=== PATIENT | female | born 1970 | race Two or more races ===

== ENCOUNTER 2016-09-07 11:26 | Inpatient (IN) | payer BC, MEDICAID, OTHER ==
[2016-09-07] VITALS (16 sets, daily range): BP systolic 108–156; BP diastolic 62–85; PULSE 90–109; RESP 14–20; TEMP 97.3–98.3; O2SAT 99–100
[~2016-09-07] VITALS: Ht 154.9 cm; Wt 56.8 kg
[~2016-09-07 11:26] MED LIST: REME15TA OR
[2016-09-07] MEDS ORDERED: SODIUM CHLOR 0.9% 1000 ML INJ 1,000 ML IV ONE ×2 (11:52→13:15)
[2016-09-07] MEDS ORDERED: ONDANSETRON HCL 4 MG/2 ML VIAL IVP ONE (12:00)
[2016-09-07] MEDS ORDERED: SODIUM CHLORIDE 0.9% FLUSH 5 ML FLUSH IVF PRN ×2 (12:00→17:00)
[2016-09-07 12:13] LABS: BLOOD GAS BASE EXCESS -17.1 mmol/L (-2-2); BLOOD GAS CARBOXYHEMOGLOBIN 2.4 % (0-4); BLOOD GAS HCO3 9 mmol/L (22-26); BLOOD GAS METHEMOGLOBIN 2.1 % (0-2); BLOOD GAS O2 HGB SATURATION 93 % (90-100); BLOOD GAS OXYGEN CONTENT 20.2 Vol % (12.0-20.0); BLOOD GAS PCO2 24 mmHg (38-42); BLOOD GAS PO2 106 mmHG (61-120); BLOOD GAS TOTAL HGB 15.4 G/DL (12.0-16.0); CRITICAL VALUE YES; DRAW SITE RT RADIAL; FIO2 21 %; NUMBER OF ARTERIAL PUNCTURES 1; OXYGEN DEVICE ROOM AIR; STAT YES; TEMP CORR TO 98.6; ULNAR PULSE PRESENT
--- NOTE | 2016-09-07 12:21 | RADRPT ---
EXAM DATE/TIME: 09/07/2016 12:03 [facility] COMPARISON: No previous studies available for comparison. INDICATIONS : Syncope MEDICAL HISTORY : None. SURGICAL HISTORY : None. ENCOUNTER: Initial ACUITY: 1 day PAIN SCORE: Non-responsive. LOCATION: Bilateral chest FINDINGS: Portable AP view of the chest demonstrates a normal-sized cardiac silhouette. No effusion, consolidat ion, or pneumothorax is visualized. The bones and soft tissues demonstrate no acute abnormality. CONCLUSION: No acute cardiopulmonary abnormality is identified. Zaire La MD on September 07, 2016 at 12:19 Board Certified Radiologist. This report was verified electronically.
[2016-09-07] MEDS ORDERED: SODIUM BICARBONATE 8.4% INJ 50 MEQ/50 ML SYR IV PUSH ONE ×2 (12:30→13:30)
[2016-09-07 12:37] LABS: AUTOMATED NEUTROPHIL # 7.2 TH/MM3 (1.8-7.7); BASOPHIL # 0.1 TH/MM3 (0-0.2); BASOPHIL % 0.6 % (0.0-2.0); EOSINOPHIL # 0.3 TH/MM3 (0-0.4); EOSINOPHIL % 2.4 % (0.0-4.0); HEMATOCRIT 45.9 % (35.0-46.0); HEMO FLAGS DIFF FINAL; LYMPHOCYTE # 2.3 TH/MM3 (1.0-4.8); MEAN CELL VOLUME 94.7 FL (80.0-100.0); MEAN CORPUSCULAR HEMOGLOBIN 30.9 PG (27.0-34.0); MEAN CORPUSCULAR HGB CONC 32.6 % (32.0-36.0); MONO % 5.2 % (0.0-8.0); NEUT % 69.8 % (16.0-70.0); PLATELET COUNT 331 TH/MM3 (150-450); RED BLOOD COUNT 4.85 MIL/MM3 (4.00-5.30); RED CELL DISTRIBUTION WIDTH 13.7 % (11.6-17.2); WHITE BLOOD COUNT 10.3 TH/MM3 (4.0-11.0)
[2016-09-07 12:46] LABS: BLOOD, URINE NEG (NEG); CALCIUM OXALATE CRYSTALS,URINE FEW /hpf; GLUCOSE,URINE NEG (NEG); KETONE, URINE NEG (NEG); NITRITE,URINE NEG (NEG); SQUAMOUS EPITHELIAL CELL URINE <1 /hpf (0-5); URINE COLOR LIGHT-YELLOW (YELLW/STRAW)
[2016-09-07 12:47] LABS: COMMENT (UR) CULT NOT INDICATED; CULTURE IF INDICATED CULT NOT INDICATED
[2016-09-07 12:48] LABS: AMPHETAMINE, URINE NEG (NEG); BARBITURATES, URINE NEG (NEG); COCAINE, URINE NEG (NEG)
[2016-09-07 12:54] LABS: APTT (PATIENT) 29.6 SEC (24.3-30.1); INTERNATIONAL NORMALIZED RATIO 0.9 RATIO; PROTHROMBIN TIME - PATIENT 10.3 SEC (9.8-11.6)
[2016-09-07 13:03] LABS: ALKALINE PHOSPHATASE 126 U/L (45-117); ALT (GPT) 48 U/L (10-53); BETA HCG QUANT 3 MIU/ML (0-5); TOTAL BILIRUBIN ADULT 0.4 MG/DL (0.2-1.0)
[2016-09-07 13:07] LABS: ANION GAP 23 MEQ/L (5-15); AST (GOT) 34 U/L (15-37); BICARBONATE 12.8 MEQ/L (21.0-32.0); BLOOD UREA NITROGEN 15 MG/DL (7-18); CHLORIDE 109 MEQ/L (98-107); GLOMERULAR FILTRATION RATE 56 ML/MIN (>89); SODIUM (NA) 145 MEQ/L (136-145)
[2016-09-07 13:08] LABS: ACETAMINOPHEN LESS THAN 2.0 MCG/ML (10.0-30.0); POTASSIUM 4.9 MEQ/L (3.5-5.1)
[2016-09-07] MEDS ORDERED: DEXTROSE IV SCH ×4 (13:15→15:00)
[2016-09-07] MEDS ORDERED: [UNRECOGNIZED DRUG - OTHER] IV SCH ×2 (13:15)
[2016-09-07] MEDS ORDERED: WATE IV SCH ×2 (13:15)
[2016-09-07] MEDS ORDERED: ALCOHOL IV SCH ×4 (13:15→15:00)
--- NOTE | 2016-09-07 13:28 | PD ---
HPI Chief Complaint: OD/ Ingestion Time Seen by Provider: 11:38 Travel History International Travel<30 days: No Contact w/Intl Traveler<30days: No Traveled to known affect area: No History of Present Illness HPI 46-year-old female presents after she took an unknown amount of benzodiazepines , Benadryl, antifreeze last night trying to hurt her self. She denies any pain but can only open her eyes to voice and state her name. History is significantly limited. Patient presents under [facility]. [facility] Past Medical History Medical History: Unable to Obtain ?: Unknown Past Surgical History Narrative Surgical By records Gynecologic Surgery: Yes (BREAST IMPLANTS) Hysterectomy: Yes Social History Narrative Social History By records Alcohol Use: Yes (WINE DAILY) Tobacco Use: Yes Substance Use: No Allergies-Medications (Allergen,Severity, Reaction): Coded Allergies: Morphine (Verified Allergy, Unknown, 09/07/16) Reported Meds & Prescriptions Reported Meds & Active Scripts Active Active Prescriptions or Reported Medications Unobtainable Review of Systems ROS Limitations: Clinical Condition Physical Exam Exam Limitations: Clinical Condition Narrative GENERAL: Well-nourished, well-developed patient. SKIN: Warm and dry. HEAD: Normocephalic EYES: No injection or drainage. ENT: No nasal drainage noted. Dry mucous membranes NECK: Supple, trachea midline. CARDIOVASCULAR: Regular rate and rhythm RESPIRATORY: Breath sounds equal bilaterally at apices. No accessory muscle use. GASTROINTESTINAL: Abdomen soft, non-tender, nondistended. NEUROLOGICAL: Opens eyes to voice, states name states name,moves all extremities Data Data Last Documented VS Vital Signs Date Time Temp Pulse Resp B/P Pulse Ox O2 Delivery O2 Flow Rate FiO2 09/07/16 12:11 100 09/07/16 12:07 97.3 90 14 136/85 Orders Electrocardiogram (09/07/16 11:52) Alcohol (Ethanol) (09/07/16 11:52) Beta Hcg (Quant/Titer) (09/07/16 11:52) Complete Blood Count With Diff (09/07/16 11:52) Comprehensive Metabolic Panel (09/07/16 11:52) Drug Screen, Random Urine (09/07/16 11:52) Prothrombin Time / Inr (Pt) (09/07/16 11:52) Act Partial Throm Time (Ptt) (09/07/16 11:52) Salicylates (Aspirin) (09/07/16 11:52) Tylenol (Acetaminophen) (09/07/16 11:52) Osmolality,Serum (09/07/16 11:52) Osmolality, Urine (09/07/16 11:52) Urinalysis - C+S If Indicated (09/07/16 11:52) Chest, Single Ap (09/07/16 11:52) Arterial Blood Gas (Abg) (09/07/16 11:52) Blood Glucose (09/07/16 11:52) Iv Access Insert/Monitor (09/07/16 11:52) Cath For Specimen (09/07/16 11:52) Ecg Monitoring (09/07/16 11:52) Oximetry (09/07/16 11:52) Urinary Catheter Insert/Apply (09/07/16 11:52) Psych Screen (09/07/16 11:52) Ondansetron Inj (Zofran Inj) (09/07/16 12:00) Sodium Chloride 0.9% Flush (Ns Flush) (09/07/16 12:00) Sodium Chlor 0.9% 1000 Ml Inj (Ns 1000 M (09/07/16 11:52) Call Poison Control (09/07/16 11:52) Sodium Bicarbonate 8.4% Inj (Sodium Bica (09/07/16 12:30) Dextrose 5% In [place]... W/Alcohol, Dehydr (09/07/16 13:15) Sodium Chlor 0.9% 1000 Ml Inj (Ns 1000 M (09/07/16 13:15) Lactic Acid (09/07/16 13:14) Sodium Bicarbonate 8.4% Inj (Sodium Bica (09/07/16 13:30) Sodium Chlor 0.45%... W/Sodium Bicarbona (09/07/16 13:30) ^ Sitter (09/07/16 13:24) Dextrose 5% In [place]... W/Alcohol, Dehydr (09/07/16 15:00) Dextrose 5% In [place]... W/Alcohol, Dehydr (09/07/16 13:45) Admit Order (Ed Use Only) (09/07/16 13:37) Labs Laboratory Tests Test 09/07/16 09/07/16 09/07/16 11:50 12:00 12:01 Urine Color LIGHT-YELLOW Urine Turbidity CLEAR Urine pH 5.0 Urine Specific [place] 1.012 Urine Protein NEG mg/dL Urine Glucose (UA) NEG mg/dL Urine Ketones NEG mg/dL Urine Occult Blood NEG Urine Nitrite NEG Urine Bilirubin NEG Urine Urobilinogen LESS THAN 2.0 MG/DL Urine Leukocyte Esterase NEG Urine RBC LESS THAN 1 /hpf Urine WBC 1 /hpf Urine Squamous Epithelial <1 /hpf Cells Urine Calcium Oxalate Crystals FEW /hpf Microscopic Urinalysis Comment CULT NOT INDICATED Urine Osmolality 626 MOSM/KG Serum Osmolality 342 MOSM/KG Urine Opiates Screen NEG Urine Barbiturates Screen NEG Urine Amphetamines Screen NEG Urine Benzodiazepines Screen POS Urine Cocaine Screen NEG Urine Cannabinoids Screen NEG White Blood Count 10.3 TH/MM3 Red Blood Count 4.85 MIL/MM3 Hemoglobin 15.0 GM/DL Hematocrit 45.9 % Mean Corpuscular Volume 94.7 FL Mean Corpuscular Hemoglobin 30.9 PG Mean Corpuscular Hemoglobin 32.6 % Concent Red Cell Distribution Width 13.7 % Platelet Count 331 TH/MM3 Mean Platelet Volume 8.9 FL Neutrophils (%) (Auto) 69.8 % Lymphocytes (%) (Auto) 22.0 % Monocytes (%) (Auto) 5.2 % Eosinophils (%) (Auto) 2.4 % Basophils (%) (Auto) 0.6 % Neutrophils # (Auto) 7.2 TH/MM3 Lymphocytes # (Auto) 2.3 TH/MM3 Monocytes # (Auto) 0.5 TH/MM3 Eosinophils # (Auto) 0.3 TH/MM3 Basophils # (Auto) 0.1 TH/MM3 CBC Comment DIFF FINAL Differential Comment Prothrombin Time 10.3 SEC Prothromb Time International 0.9 RATIO Ratio Activated Partial 29.6 SEC Thromboplast Time Sodium Level 145 MEQ/L Potassium Level 4.9 MEQ/L Chloride Level 109 MEQ/L Carbon Dioxide Level 12.8 MEQ/L Anion Gap 23 MEQ/L Blood Urea Nitrogen 15 MG/DL Creatinine 1.05 MG/DL Estimat Glomerular Filtration 56 ML/MIN Rate Random Glucose 63 MG/DL Calcium Level 9.5 MG/DL Total Bilirubin 0.4 MG/DL Aspartate Amino Transf 34 U/L (AST/SGOT) Alanine Aminotransferase 48 U/L (ALT/SGPT) Alkaline Phosphatase 126 U/L Total Protein 8.8 GM/DL Albumin 4.3 GM/DL Human Chorionic Gonadotropin, 3 MIU/ML Quant Salicylates Level 2.7 MG/DL Acetaminophen Level LESS THAN 2.0 MCG/ML Ethyl Alcohol Level LESS THAN 3 MG/DL Blood Gas Puncture Site RT RADIAL Blood Gas Patient Temperature 98.6 Blood Gas HCO3 9 mmol/L Blood Gas Base Excess -17.1 mmol/L Blood Gas Oxygen Saturation 93 % Arterial Blood pH 7.22 Arterial Blood Partial 24 mmHg Pressure CO2 Arterial Blood Partial 106 mmHG Pressure O2 Arterial Blood Oxygen Content 20.2 Vol % Arterial Blood 2.4 % Carboxyhemoglobin Arterial Blood Methemoglobin 2.1 % Blood Gas Hemoglobin 15.4 G/DL Oxygen Delivery Device ROOM AIR Blood Gas Inspired Oxygen 21 % MDM Medical Decision Making Medical Screen Exam Complete: Yes Emergency Medical Condition: Yes Medical Record Reviewed: Yes (pmh confirmed) Interpretation(s) CBC & BMP Diagram 09/07/16 12:00 Last 24 hours Impressions Chest X-Ray 09/07/16 1152 Signed Impressions: Service Date/Time: Wednesday, September 07, 2016 12:03 - CONCLUSION: No acute cardiopulmonary abnormality is identified. Zaire La MD Osmolar gap is 43, high anion gap noted, alcohol negative EKG is sinus rhythm no STEMI criteria Differential Diagnosis Overdose, congestion, renal failure, electrolyte abnormality.... Narrative Course Will check blood work, chest x-ray and discussed at length with pharmacist and poison control in regards to medication dosing Given acidosis on ABG will dose with 3 A of bicarbonate and discuss with pharmacist starting fomeipazole. Pharmacist states we do not have this medication and lengthy discussion with both them and poison control about starting alcohol infusion BMP shows patient still acidotic so we'll place on bicarbonate drip in addition to IV alcohol, On recheck patient opens eyes to painful stimuli and states name but is more drowsy than on initial exam so will continue to closely monitor in ICU patient having dialysis catheter placed by dr clements, vitals stable, alcohol drip pending, will hold and perform dialysis Critical Care Narrative Aggregate critical care time was 60 minutes. Time to perform other separately billable procedures was not included in the critical care time. My time did not include minutes spent treating any other patients simultaneously or on activities that did not directly contribute to the patient's treatment. The services I provided to this patient were to treat and/or prevent clinically significant deterioration that could result in: Respiratory failure, renal failure, I provided critical care services requiring my management, as noted below: Chart data review, documentation time, medication orders and management, vital sign assessments/reviewing monitor data, ordering and reviewing lab tests, ordering and interpreting/reviewing x-rays and diagnostic studies, care of the patient and discussion of the patient with the admitting physicians. Physician Communication Physician Communication dr clements agrees to admit dr rivera agrees to emergent dialysis with conference call with myself and dr clements and dr clements will place dialysis catheter Diagnosis Primary Impression: Poisoning by antifreeze Qualified Code: T65.92XA - Poisoning by antifreeze, intentional self-harm, initial encounter Additional Impressions: High serum osmolar gap High anion gap metabolic acidosis Admitting Information Admitting Physician Requests: Admit Scripts Unable to Obtain Active Prescriptions or Reported Meds Cecy Medellin MD Sep 07, 2016 13:28
[2016-09-07] MEDS ORDERED: DEXTROSE IV ONE ×2 (13:45)
[2016-09-07] MEDS ORDERED: ALCOHOL IV ONE ×2 (13:45)
[2016-09-07] MEDS ORDERED: [UNRECOGNIZED DRUG - OTHER] IV ONE ×2 (13:45)
[2016-09-07] MEDS ORDERED: WATE IV ONE ×2 (13:45)
[2016-09-07] MEDS: SODIUM BICARBONATE 8.4% INJ 75 MEQ in SODIUM CHLOR 0.45% 1000 ML INJ 1,000 ML IV SCH ×2 (14:02→19:55)
[2016-09-07] MEDS ORDERED: [UNRECOGNIZED DRUG - OTHER] IV SCH ×2 (15:00)
[2016-09-07] MEDS ORDERED: WATER IV SCH ×2 (15:00)
[2016-09-07] MEDS ORDERED: SODIUM CHLORIDE 0.9% FLUSH 5 ML FLUSH IV FLUSH PRN (15:15)
[2016-09-07] MEDS ORDERED: MAGNESIUM SULFATE INJ 4 GM in SODIUM CHLORIDE 0.9% INJ 92 ML IV PRN (15:15)
[2016-09-07] MEDS ORDERED: POTASSIUM PHOSPHATE INJ 30 MMOL in SODIUM CHLOR 0.9% 250 ML INJ 250 ML IV PRN (15:15)
[2016-09-07] MEDS ORDERED: ONDANSETRON HCL 4 MG/2 ML VIAL IV PRN ×2 (15:15→17:00)
[2016-09-07] MEDS ORDERED: RESP: ALBUTEROL 2.5 MG/IPRATROPIUM 0.5 MG NEB (PRN) INH (15:15)
[2016-09-07] MEDS ORDERED: POTASSIUM CHLOR 40 MEQ PREMIX 100 ML IV PRN ×2 (15:15)
[2016-09-07] MEDS ORDERED: MAGNESIUM SULFATE INJ 2 GM in SODIUM CHLORIDE 0.9% INJ 96 ML IV PRN (15:15)
[2016-09-07] MEDS ORDERED: POTASSIUM CHLOR 20 MEQ PREMIX 100 ML IV PRN (15:15)
[2016-09-07] MEDS ORDERED: CHLORHEXIDINE GLUCONATE 2 % 1 PACK (2 CLOTHS) TOP PRN (15:15)
[2016-09-07] MEDS ORDERED: POTASSIUM PHOSPHATE MONOBASIC 500 MG TAB PO PRN (15:15)
[2016-09-07] MEDS ORDERED: MISCELLANEOUS NURSING INFORMATION XX SCH (15:15)
[2016-09-07] MEDS ORDERED: MAGNESIUM OXIDE 400 MG TAB PO PRN (15:15)
[2016-09-07] MEDS ORDERED: POTASSIUM PHOSPHATE MONOBASIC 500 MG TAB PO/TUBE PRN (15:15)
[2016-09-07] MEDS ORDERED: SODIUM PHOSPHATE INJ 30 MMOL in SODIUM CHLOR 0.9% 250 ML INJ 240 ML IV PRN (15:15)
[2016-09-07] MEDS ORDERED: POTASSIUM CL 40 MEQ/30 ML LIQ UDC PO/TUBE PRN ×2 (15:15)
--- NOTE | 2016-09-07 15:40 | RADRPT ---
EXAM DATE/TIME: 09/07/2016 15:18 [facility] COMPARISON: CHEST SINGLE AP, September 07, 2016, 12:03. INDICATIONS : Post central line placement MEDICAL HISTORY : None. SURGICAL HISTORY : None. ENCOUNTER: Subsequent ACUITY: 1 day PAIN SCORE: Non-responsive. LOCATION: chest FINDINGS: A single view of the chest demonstrates the lungs to be symmetrically aerated without evidence of mas s, infiltrate or effusion. There is a right internal jugular central line in place with the tip over lying the right atrium. No pneumothorax is seen. The cardiomediastinal contours are unremarkable. Os seous structures are intact. CONCLUSION: Right internal jugular central line in place with tip at the right atrium. Zaire Salinas MD on September 07, 2016 at 15:38 Board Certified Radiologist. This report was verified electronically.
--- NOTE | 2016-09-07 15:46 | HHI.HP ---
HPI Service Critical Care Medicine Primary Care Physician No Primary Care Physician Admission Diagnosis antifreeze overdose, acidosis Diagnosis: Chief Complaint: Altered mental status Travel History International Travel<30 Days: No Contact w/Intl Traveler <30 Da: No Traveled to Known Affected Are: No History of Present Illness This is a 46-year-old female with an under past medical history who presents to [facility] emergency Department with altered mental status. She is very somnolent but which she did tell the ER physician is that she drank a lot of antifreeze and took a lot of Valium. Per EMS report she also may have taken some unknown amount of Benadryl. She is protecting her airway, but it is significantly somnolent, difficult to arouse. The rest of her history is unobtainable. I evaluated the patient and agree with the ER physicians findings that she is not able to provide history with me, but she is still protecting her airway. Her laboratory data is pertinent for white blood cell count 10, hemoglobin 15, INR 0.9. Her ABG demonstrates a severe metabolic acidosis with an inappropriate respiratory compensation with a pH of 7.22, PCO2 24, PO2 of 106, base deficit of 17.1. Her UA demonstrates crystals. Her BMP is remarkable for a serum bicarbonate of 12.8, creatinine 1.05, serum osmolality of 342, anion gap of 23, osmole gap of 43. Her ethanol level was negative, Tylenol level levels negative, aspirin levels 2.7. Her UDS is positive for benzos. Critical care medicine has been consulted to evaluate and manage her ethylene glycol overdose. Our hospital does not carry Fomepizole and we cannot obtain it. The ER contacted poison control and they recommended in absence of fomepizole, ethanol infusion and sodium bicarbonate infusion. I have spoken with Dr. Cloud our on-call process supervisor. We both agree that her acidosis is great enough and uncompensated, and her airway is tenuous although still protected at this moment , that the safest option weighing risks/benefits is to proceed with emergent dialysis. Dr. Medellin, the ER physician, agrees with our assessment. Review of Systems ROS Limitations: Clinical Condition, Intoxication, Altered Mental Status Past Family Social History Allergies: Coded Allergies: Morphine (Verified Allergy, Unknown, 09/07/16) Past Medical History Unknown and unobtainable secondary to patient's clinical condition Past Surgical History Unknown and unobtainable secondary to patient's clinical condition Reported Medications Unknown unobtainable secondary to the patient's clinical condition Active Ordered Medications See MAR Family History Unknown and unobtainable secondary to patient's clinical condition. It is unlikely that is contributory to her acute illness. Social History Unknown and unobtainable secondary to patient's clinical condition. Physical Exam Vital Signs Vital Signs Date Time Temp Pulse Resp B/P Pulse Ox O2 Delivery O2 Flow Rate FiO2 09/07/16 15:30 97 14 138/82 100 Nasal Cannula 2 09/07/16 14:47 98 20 156/82 100 Nasal Cannula 2 09/07/16 12:11 100 09/07/16 12:07 97.3 90 14 136/85 100 Physical Exam GENERAL: Middle-aged female, lying in bed, somnolent but arousable to deep sternal rub, critically ill. HEENT: Pupils equal, round, conjugate, reactive. Mucous membranes are moist. NECK: Trachea is midline. There is no JVD. CHEST: Equal chest rise. Clear to auscultation. CARDIOVASCULAR: Normal rate, regular rhythm. No appreciable murmurs. ABDOMEN: Soft, nontender, nondistended. No guarding. There is a Webber with clear yellow urine. MUSCULOSKELETAL: Distal pulses 2+. No peripheral edema. NEUROLOGICAL: RASS -2/-3. Arousable to deep sternal rub. Positive cough. Positive gag. Follows commands weakly in all 4 extremity's. Laboratory Laboratory Tests Test 09/07/16 09/07/16 09/07/16 11:50 12:00 12:01 Urine Color LIGHT-YELLOW Urine Turbidity CLEAR Urine pH 5.0 Urine Specific [place] 1.012 Urine Protein NEG Urine Glucose (UA) NEG Urine Ketones NEG Urine Occult Blood NEG Urine Nitrite NEG Urine Bilirubin NEG Urine Urobilinogen LESS THAN 2.0 Urine Leukocyte Esterase NEG Urine RBC LESS THAN 1 Urine WBC 1 Urine Squamous Epithelial <1 Cells Urine Calcium Oxalate Crystals FEW Microscopic Urinalysis Comment CULT NOT INDICATED Urine Osmolality 626 Serum Osmolality 342 Urine Opiates Screen NEG Urine Barbiturates Screen NEG Urine Amphetamines Screen NEG Urine Benzodiazepines Screen POS Urine Cocaine Screen NEG Urine Cannabinoids Screen NEG White Blood Count 10.3 Red Blood Count 4.85 Hemoglobin 15.0 Hematocrit 45.9 Mean Corpuscular Volume 94.7 Mean Corpuscular Hemoglobin 30.9 Mean Corpuscular Hemoglobin 32.6 Concent Red Cell Distribution Width 13.7 Platelet Count 331 Mean Platelet Volume 8.9 Neutrophils (%) (Auto) 69.8 Lymphocytes (%) (Auto) 22.0 Monocytes (%) (Auto) 5.2 Eosinophils (%) (Auto) 2.4 Basophils (%) (Auto) 0.6 Neutrophils # (Auto) 7.2 Lymphocytes # (Auto) 2.3 Monocytes # (Auto) 0.5 Eosinophils # (Auto) 0.3 Basophils # (Auto) 0.1 CBC Comment DIFF FINAL Differential Comment Prothrombin Time 10.3 Prothromb Time International 0.9 Ratio Activated Partial 29.6 Thromboplast Time Sodium Level 145 Potassium Level 4.9 Chloride Level 109 Carbon Dioxide Level 12.8 Anion Gap 23 Blood Urea Nitrogen 15 Creatinine 1.05 Estimat Glomerular Filtration 56 Rate Random Glucose 63 Calcium Level 9.5 Total Bilirubin 0.4 Aspartate Amino Transf 34 (AST/SGOT) Alanine Aminotransferase 48 (ALT/SGPT) Alkaline Phosphatase 126 Total Protein 8.8 Albumin 4.3 Human Chorionic Gonadotropin, 3 Quant Salicylates Level 2.7 Acetaminophen Level LESS THAN 2.0 Ethyl Alcohol Level LESS THAN 3 Blood Gas Puncture Site RT RADIAL Blood Gas Patient Temperature 98.6 Blood Gas HCO3 9 Blood Gas Base Excess -17.1 Blood Gas Oxygen Saturation 93 Arterial Blood pH 7.22 Arterial Blood Partial 24 Pressure CO2 Arterial Blood Partial 106 Pressure O2 Arterial Blood Oxygen Content 20.2 Arterial Blood 2.4 Carboxyhemoglobin Arterial Blood Methemoglobin 2.1 Blood Gas Hemoglobin 15.4 Oxygen Delivery Device ROOM AIR Blood Gas Inspired Oxygen 21 Result Diagram: 09/07/16 1200 09/07/16 1200 Assessment and Plan Assessment and Plan Assessment: This is a 46-year-old female with a really unknown past medical history who presents with acute ethanol glycol toxicity and evidence of severe acidosis as well as altered mental status. She is very critically ill this time. We will pursue emergent hemodialysis. If her mental status continues to decline we will have to proceed with emergent intubation. Active problems: Ethylene glycol toxicity Benzodiazepine overdose Severe metabolic acidosis Toxic encephalopathy Plan: I will place a right IJ dialysis catheter Proceed with emergent dialysis For mental status declined we will proceed with intubation and mechanical ventilation Every hour neuro checks Every hour urine outputs We will continue the sodium bicarbonate infusion as directed by poison control center We will not start ethanol infusion, as we are proceeding with dialysis instead. Subcutaneous heparin, SCDs for DVT prophylaxis Does not meet criteria for GI prophylaxis at this time Nothing by mouth Serial BMP, CBC. Admit to the ICU. This patient remains critically ill with one or more organ systems which are or may become a threat to life. I have spent in excess of 57 minutes discontinuously in the care and management of this patient. This time is exclusive of procedures, and includes, but is not limited to, evaluation of the patient, review of the medical record, discussions with family, consultants, nursing staff, or respiratory therapy, and documentation in the medical record. Code Status Full Code Discussed Condition With Dr. Smith, Dr. Cloud, bedside RN Nando Huerta MD Sep 07, 2016 15:46
[2016-09-07] MEDS: INSULIN NovoLIN REGULAR SUPPLEMENTAL SCALE SQ SCH ×2 (16:00→20:00)
--- NOTE | 2016-09-07 16:09 | PD.PROCEDR ---
Procedure Note Procedure Central Line Procedure Note Right IJ 14 American, 20 cm dialysis catheter Diagnosis: Ethylene glycol toxicity Indications: Severe acidosis Consent: Consent is deemed emergent or medically necessary Anesthesia: 1% lidocaine locally Description of the Procedure: The patient was placed in the supine, mild- Trendelenburg position. The area was prepped and draped sterilely. A 19g needle was inserted under negative pressure aspiration and dark venous blood was obtained. A guidewire was inserted easily without resistance. A small incision was made using a #11 blade. Using a modified Seldinger technique, the serial dilators and 14 American, 20 cm catheter were advanced over the guidewire without resistance. All ports were aspirated and flushed, and had brisk blood return. The line was secured at the skin using 2-0 silk interrupted sutures. A Biopatch and Transparent sterile dressing were applied. There were no immediate complications noted. There was minimal EBL. The patient tolerated the procedure well. Ultrasound Guidance: Ultrasound guidance was used to identify the right internal jugular vein. The vascular anatomy of the right anterior neck was normal. The vessel was cannulated under direct, real-time ultrasound visualization. After placement of the guidewire, confirmation of the guidewire in the lumen of the vessel was made using ultrasound visualization, before dilation of the tract. A Chest x-ray has been ordered. I personally performed the procedure. Nando Huerta MD Sep 07, 2016 16:09
[2016-09-07] MEDS ORDERED: SODIUM CHLOR 0.9% 1000 ML INJ 1,000 ML IV PRN ×3 (16:49)
[2016-09-07 16:54] LABS: BLOOD GAS BASE EXCESS -8.2 mmol/L (-2-2); BLOOD GAS HCO3 16 mmol/L (22-26); BLOOD GAS METHEMOGLOBIN 2.2 % (0-2); BLOOD GAS O2 HGB SATURATION 95 % (90-100); BLOOD GAS OXYGEN CONTENT 17.8 Vol % (12.0-20.0); BLOOD GAS PCO2 26 mmHg (38-42); BLOOD GAS PO2 147 mmHG (61-120); BLOOD GAS TOTAL HGB 13.1 G/DL (12.0-16.0); CRITICAL VALUE YES; TEMP CORR TO 98.6
[2016-09-07 16:55] LABS: DRAW SITE RT RADIAL; LITER FLOW 2 L/M; NUMBER OF ARTERIAL PUNCTURES 1; OXYGEN DEVICE NASAL CANNULA; STAT YES; ULNAR PULSE PRESENT
[2016-09-07] MEDS ORDERED: HEPARIN SODIUM - IV 10,000 UNITS/10 ML VIAL IVF PRN (17:00)
[2016-09-07] MEDS ORDERED: NITROGLYCERIN 0.4 MG SL 25 TABS/BTL SL PRN (17:00)
[2016-09-07] MEDS ORDERED: cloNIDine HCL 0.1 MG TAB PO PRN (17:00)
[2016-09-07] MEDS ORDERED: ALBUMIN HUMAN 25% 25 GM/100 ML BAGP IV PRN (17:00)
[2016-09-07] MEDS ORDERED: MANNITOL 12.5 GM/50 ML VIAL IV PRN (17:00)
[2016-09-07] MEDS ORDERED: HEPARIN SODIUM - IV 10,000 UNITS/10 ML VIAL PRN (17:00)
[2016-09-07] MEDS ORDERED: GELATIN 12 MM/7 MM FOAM TOP PRN (17:00)
[2016-09-07] MEDS ORDERED: diphenhydrAMINE HCL 25 MG CAP PO PRN (17:00)
[2016-09-07] MEDS ORDERED: GENTAMICIN SULFATE (DIALYSIS USE ONLY) 20 MG/2 ML VIAL IV PRN (17:00)
[2016-09-07] MEDS: HEPARIN SODIUM - SQ 10,000 UNITS/ML VIAL SQ SCH (19:54)
[2016-09-07] MEDS ORDERED: SODIUM BICARBONATE 8.4% INJ 50 MEQ/50 ML SYR ONE (20:13)
[2016-09-07] MEDS: DEXTROSE 50% IN WATER 50 ML VIAL(D50) IV PUSH PRN (20:46)
[2016-09-07] MEDS: SODIUM CHLOR 0.9% 1000 ML INJ 1,000 ML IV SCH (20:47)
[2016-09-07] MEDS: SODIUM CHLORIDE 0.9% FLUSH 5 ML FLUSH IV FLUSH SCH (20:54)
[2016-09-07] MEDS: DOCUSATE SODIUM 50 MG/SENNA 8.6 MG TAB PO SCH (21:35)
[2016-09-08] VITALS (13 sets, daily range): BP systolic 95–116; BP diastolic 54–60; PULSE 84–101; RESP 20–29; TEMP 98–98.7; O2SAT 97–100
[2016-09-08] MEDS: HEPARIN SODIUM - SQ 10,000 UNITS/ML VIAL SQ SCH ×4 (00:11→22:42)
[2016-09-08] MEDS: DEXTROSE 50% IN WATER 50 ML VIAL(D50) IV PUSH PRN ×2 (00:11→04:17)
[2016-09-08] MEDS: SODIUM CHLOR 0.9% 1000 ML INJ 1,000 ML IV SCH ×2 (03:55→14:51)
[2016-09-08] MEDS: CHLORHEXIDINE GLUCONATE 2 % 1 PACK (2 CLOTHS) TOP SCH (04:00)
[2016-09-08] MEDS: INSULIN NovoLIN REGULAR SUPPLEMENTAL SCALE SQ SCH ×6 (04:00→20:00)
--- NOTE | 2016-09-08 06:29 | MB ---
cc: EMILIA MURILLO MD DATE OF CONSULTATION 09/07/2016 REASON FOR CONSULTATION Acute dialysis for ethylene glycol intoxication. HISTORY OF PRESENT ILLNESS This is a 46-year-old female with a history of depression. She had a previous admission in 2010 when she apparently was Tristan Acted for an overdose of Lamictal for a suicide attempt with alcohol overdose at that time as well. She was discharged at that time and had no other visits [facility]. She was apparently admitted today to the emergency room with somnolence and reportedly told the emergency room physician that she drank a lot antifreeze and took a lot of Valium and also there is some chance of Benadryl intake as well. The patient was admitted and seen in the emergency room. She was found to have acidosis with a serum bicarbonate level of 12. Urinalysis demonstrated crystals. Her creatinine was otherwise 1. Unfortunately ethylene glycol levels could not be obtained here in this hospital and the initial treatment for this would be fomepizole which again is not available here at [facility]. Poison Control was notified as well and they recommended initial bicarbonate treatment with also alcohol treatment. I have discussed this with the ICU team and they felt that given her significant acidosis dialysis may be of benefit. She does have significant acidosis with bicarbonate level of 12. Given these findings, emergent dialysis was initiate and the patient is undergoing dialysis at this time via newly placed right IJ non-tunneled catheter which was placed by the ICU team. At this point she is fairly somnolent; however, is protecting her airway and breathing otherwise. Her vital signs are otherwise stable and her oxygen saturation is 100% on 2 liters nasal cannula. She is tolerating dialysis at this time but is unable to give a full medical history otherwise. REVIEW OF SYSTEMS Unobtainable. The patient is somnolent, is arousable. However, is unable to answer questions. PAST MEDICAL HISTORY 1. History of depression. 2. Asthma. SOCIAL HISTORY Unknown. FAMILY HISTORY Unknown. ALLERGIES ALLERGY TO MORPHINE noted in the computer system. MEDICATIONS AT HOME Unknown. The patient did have apparent ethylene glycol and Valium overdose, possible Benadryl overdose as well. PHYSICAL EXAMINATION VITAL SIGNS: At the time of evaluation, temperature 97.3, pulse 102, respiratory rate 16, blood pressure 135/77, pulse ox 100% on 2 liters nasal cannula. GENERAL: Somnolent, in no apparent distress. HEENT/NECK: Soft, supple. CARDIAC: Regular rate and rhythm. PULMONARY: Lungs clear to auscultation bilaterally. ABDOMEN: Soft, nontender, nondistended. EXTREMITIES: No edema. SKIN: The patient has a right IJ non-tunneled catheter in place. LABORATORY FINDINGS White count 10.3, hemoglobin 15, hematocrit 45.9 with platelet count of 331. Sodium 145, potassium 4.9, chloride 109, bicarb 12.8, BUN 15, creatinine 1.05, glucose 63, AST 34, ALT 48, alk phos 126, albumin 4.3. Urinalysis with a few calcium oxalate crystals noted. Toxicology screen - Positive benzodiazepines, ethyl alcohol less than 3, acetaminophen less than 2, salicylate level 2.7. ASSESSMENT AND PLAN 1. Ethylene glycol toxicity. The patient has apparent overdose of antifreeze as well as Valium and possibly Benadryl. She presents with significant acidosis with a bicarbonate level of 12. Ideally fomepizole could be given for ethylene glycol toxicity; however, this is not available here at this hospital and ethylene glycol levels cannot be obtained here. At this point will go ahead and initiate dialysis given significant acidosis with history of ethylene glycol ingestion. We will do dialysis today with no ultrafiltration, repeat dialysis tomorrow for further clearance and continue to follow up acidosis. We should have good clearance of toxin substrates with two straight dialysis treatments. Continue to closely monitor and follow acidosis. 2. Metabolic acidosis. The patient with elevated anion gap acidosis secondary to ingestion of ethylene glycol. The patient is on bicarbonate with one half normal saline plus 75 mEq of sodium bicarbonate at 42 cc/hour. Continue with fluids at this point and continue with dialysis to further treat acidosis. Dialysis will be performed today and then repeated tomorrow. 3. Altered mental status. The patient had ingestion of Valium apparently as well as ethylene glycol. Continue to monitor for improvement in mental status and continue to monitor in ICU with airway protection as needed. The patient is breathing on her at this poin 4. History of depression. The patient had a previous overdose and suicide attempt in 2010 with Lamictal at that time. As the patient further stabilizes, consider further psychiatric evaluation 5. History of asthma. There was a previous history of asthma noted on previous records. Continue to monitor and follow respiratory status. MD SASHA Trujillo/SSB /5:01 PM /6:08 AM MTDAlyce
[2016-09-08] MEDS: ACETAMINOPHEN 325 MG TAB PO PRN ×2 (07:29→14:40)
[2016-09-08 07:55] LABS: HEMATOCRIT 38.5 % (35.0-46.0); MEAN CELL VOLUME 89.9 FL (80.0-100.0); MEAN CORPUSCULAR HEMOGLOBIN 30.4 PG (27.0-34.0); MEAN CORPUSCULAR HGB CONC 33.8 % (32.0-36.0); PLATELET COUNT 253 TH/MM3 (150-450); RED BLOOD COUNT 4.28 MIL/MM3 (4.00-5.30); RED CELL DISTRIBUTION WIDTH 12.8 % (11.6-17.2); REVIEW FLAG FINAL; WHITE BLOOD COUNT 12.3 TH/MM3 (4.0-11.0)
[2016-09-08 08:44] LABS: BICARBONATE 27.2 MEQ/L (21.0-32.0)
[2016-09-08] MEDS: DOCUSATE SODIUM 50 MG/SENNA 8.6 MG TAB PO SCH ×2 (08:59→20:20)
[2016-09-08] MEDS: SODIUM CHLORIDE 0.9% FLUSH 5 ML FLUSH IV FLUSH SCH ×2 (09:00→20:20)
[2016-09-08] MEDS ORDERED: SODIUM CHLOR 0.9% 250 ML INJ 250 ML IV ONE (09:45)
[2016-09-08] MEDS: POTASSIUM CHLOR 20 MEQ PREMIX 100 ML IV PRN ×4 (10:09→18:12)
--- NOTE | 2016-09-08 11:05 | HHI.NPPN ---
Subjective History of Present Illness 46 year old female with drug overdose and suspected Ethylene Glycol poisoning Review of Systems General Constitutional: Fatigue Objective Data Data 09/07/16 09/08/16 19:00 07:00 Intake Total 1383 ml Output Total 1400 ml 400 ml Balance -1400 ml 983 ml Intake Oral 240 ml IV Total 1143 ml Output Urine Total 1400 ml 400 ml # Bowel Movements 0 Vital Signs Date Time Temp Pulse Resp B/P Pulse Ox O2 Delivery O2 Flow Rate FiO2 09/08/16 10:00 85 09/08/16 08:29 21 09/08/16 08:00 100 Nasal Cannula 1.00 09/08/16 08:00 94 09/08/16 08:00 98.7 94 22 98/55 99 09/08/16 06:00 92 09/08/16 04:00 98.1 101 20 111/58 100 09/08/16 04:00 101 09/08/16 02:00 94 09/08/16 01:38 100 Nasal Cannula 2.00 09/08/16 00:00 100 09/08/16 00:00 98.4 100 20 103/60 100 09/07/16 22:00 100 09/07/16 21:55 100 Nasal Cannula 1.00 09/07/16 21:34 98.2 101 16 148/68 100 09/07/16 20:47 103 18 117/68 100 Nasal Cannula 09/07/16 20:17 98.3 09/07/16 20:03 107 18 113/70 100 Nasal Cannula 2 09/07/16 18:30 109 14 108/62 100 Nasal Cannula 2 09/07/16 17:30 104 16 109/71 99 Nasal Cannula 2 09/07/16 17:00 102 16 110/70 100 Nasal Cannula 2 09/07/16 16:56 100 Nasal Cannula 2.00 09/07/16 16:30 102 16 135/77 100 Nasal Cannula 2 09/07/16 16:00 95 16 142/78 99 Nasal Cannula 2 09/07/16 15:30 97 14 138/82 100 Nasal Cannula 2 09/07/16 14:47 98 20 156/82 100 Nasal Cannula 2 09/07/16 12:11 100 09/07/16 12:07 97.3 90 14 136/85 100 -: 09/08/16 0658 09/08/16 0658 Physical Exam General Appearance: Well Developed, Well Nourished Eyes Eye Exam: Pupils Equal Neck Neck Exam: Neck Supple Pulmonary Resp Exam: Clear Bilaterally, Breath Sounds Equal Cardiology CV Exam: Regular, Normal Sinus Rhythm, Good Perfusion Gastrointestinal/Abdomen GI Exam: Soft, Non-Tender, Bowel Sounds Present Integumentary Skin Exam: Clear Extremeties Extremities Exam: No Edema Neurologic Neuro Exam: Alert, Awake, Oriented Assessment/Plan Problem List: (1) Poisoning by antifreeze Plan: she is seen during 2nd dialysis session today UF 4 K UF minimal tolerating it well Acidosis resolved no further indication for dialysis suspected Ethylene Glycol poisoning resolved after dialysis Nephrology to sign off replace k Problem Qualifiers (1) Poisoning by antifreeze: Qualified Code: T65.92XA - Poisoning by antifreeze, intentional self-harm, initial encounter Fredis Roth MD Sep 08, 2016 11:05
[2016-09-08] MEDS ORDERED: POTASSIUM CHLORIDE 10 MEQ CONTROLLED RELEASE TAB PO ONE (11:15)
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
--- NOTE | 2016-09-08 19:01 | EKG ---
Date Performed: 09/07/2016 Time Performed: 20:07:10 PTAGE: 46 years EKG: SINUS TACHYCARDIA POSSIBLE INFERIOR MYOCARDIAL INFARCTION Inferior lateral ischemic changes are present. Clinical correlation is recommended ABNORMAL ECG NO PREVIOUS TRACING DOCTOR: Jailyn Carrasco Interpretating Date/Time 09/08/2016 19:00:39
--- NOTE | 2016-09-08 21:02 | HHI.CCPN ---
Subjective Remarks/Hospital Course Hospital Course: This is a 46-year-old female with an under past medical history who presents to [facility] emergency Department with altered mental status. She is very somnolent but which she did tell the ER physician is that she drank a lot of antifreeze and took a lot of Valium. Per EMS report she also may have taken some unknown amount of Benadryl. She is protecting her airway, but it is significantly somnolent, difficult to arouse. The rest of her history is unobtainable. I evaluated the patient and agree with the ER physicians findings that she is not able to provide history with me, but she is still protecting her airway. Her laboratory data is pertinent for white blood cell count 10, hemoglobin 15, INR 0.9. Her ABG demonstrates a severe metabolic acidosis with an inappropriate respiratory compensation with a pH of 7.22, PCO2 24, PO2 of 106, base deficit of 17.1. Her UA demonstrates crystals. Her BMP is remarkable for a serum bicarbonate of 12.8, creatinine 1.05, serum osmolality of 342, anion gap of 23, osmole gap of 43. Her ethanol level was negative, Tylenol level levels negative, aspirin levels 2.7. Her UDS is positive for benzos. Critical care medicine has been consulted to evaluate and manage her ethylene glycol overdose. Our hospital does not carry Fomepizole and we cannot obtain it. The ER contacted poison control and they recommended in absence of fomepizole, ethanol infusion and sodium bicarbonate infusion. I have spoken with Dr. Cloud our on-call parts counter clerk. We both agree that her acidosis is great enough and uncompensated, and her airway is tenuous although still protected at this moment , that the safest option weighing risks/benefits is to proceed with emergent dialysis. Dr. Medellin, the ER physician, agrees with our assessment. Subjective: 09/08: much improved. awake, alert. says she wanted to kill herself because she didn't deserve to live. actively getting 2nd IHD on my exam this morning. anion gap closed. renal function normal. good uop. Objective Vital Signs Date Time Temp Pulse Resp B/P Pulse Ox O2 Delivery O2 Flow Rate FiO2 09/08/16 18:00 95 09/08/16 16:00 98.4 28 95/54 97 09/08/16 08:00 Nasal Cannula 1.00 Intake and Output 09/07/16 09/07/16 09/08/16 08:00 16:00 00:00 Intake Total 295 ml Output Total 1650 ml Balance -1355 ml Result Diagram: 09/08/1665709/08/16657 Objective Remarks GENERAL: Middle-aged female, lying in bed, awake, alert. HEENT: Pupils equal, round, conjugate, reactive. Mucous membranes are moist. NECK: Trachea is midline. There is no JVD. right IJ dialysis catheter site clean, dressing intact. CHEST: Equal chest rise. Clear to auscultation. CARDIOVASCULAR: Normal rate, regular rhythm. No appreciable murmurs. ABDOMEN: Soft, nontender, nondistended. No guarding. There is a Lyons with clear yellow urine. MUSCULOSKELETAL: Distal pulses 2+. No peripheral edema. NEUROLOGICAL: RASS 0. cam -. follows commands. A/P Assessment and Plan Assessment: This is a 46-year-old female with ethylene glycol and valium toxicity, now s/p IHD x 2 emergently for life-threatening acidosis and altered mental status. now clinically improved. Plan: 1. ethylene glycol toxicity -- completing IHD today -- no need for further dialysis. will discontinue dialysis catheter after IHD -- appreciate poison control following along -- repeat serum osms today 2. valium overdose -- clinically improved -- monitor for signs of benzo withdraw 3. Acute kidney injury -- resolving. -- will d/c lyons later today 4. Suicidal ideation/attempt -- psych consult -- will likely need inpatient psych referral. -- regular basic diet as tolerated -- SCDs, heparin for DVT prophylaxis -- no indication for GI prophy at this time. Dispo: good candidate for transfer to med/psych unit. will consult psych and hospitalists. safe for transfer out of ICU. Nando Huerta MD Sep 08, 2016 21:02
[2016-09-09] VITALS (7 sets, daily range): BP systolic 87–126; BP diastolic 53–66; PULSE 82–101; RESP 14–29; TEMP 97.7–97.9; O2SAT 95–99
[2016-09-09] MEDS: SODIUM CHLOR 0.9% 1000 ML INJ 1,000 ML IV SCH (03:45)
[2016-09-09] MEDS: CHLORHEXIDINE GLUCONATE 2 % 1 PACK (2 CLOTHS) TOP SCH (04:00)
[2016-09-09] MEDS: INSULIN NovoLIN REGULAR SUPPLEMENTAL SCALE SQ SCH ×3 (04:00→07:58)
[2016-09-09 06:01] LABS: HEMATOCRIT 33.1 % (35.0-46.0); MEAN CELL VOLUME 91.9 FL (80.0-100.0); MEAN CORPUSCULAR HGB CONC 33.7 % (32.0-36.0); PLATELET COUNT 211 TH/MM3 (150-450); RED CELL DISTRIBUTION WIDTH 12.7 % (11.6-17.2); REVIEW FLAG FINAL; WHITE BLOOD COUNT 8.9 TH/MM3 (4.0-11.0)
[2016-09-09 06:47] LABS: BICARBONATE 26.5 MEQ/L (21.0-32.0); POTASSIUM 3.9 MEQ/L (3.5-5.1)
[2016-09-09] MEDS: HEPARIN SODIUM - SQ 10,000 UNITS/ML VIAL SQ SCH (07:47)
--- NOTE | 2016-09-09 09:16 | HHI.DS ---
Discharge Summary Admission Date Sep 07, 2016 at 1:39 pm Discharge Date: Sep 09, 2016 Admitting Diagnosis antifreeze overdose, acidosis (1) High anion gap metabolic acidosis ICD Code: E87.2 (2) Poisoning by antifreeze ICD Code: T65.91XA (3) Major depressive disorder ICD Code: F32.9 Procedures Dialysis catheter placement Dialysis - emergent Brief History - From Admission This is a 46-year-old female with an under past medical history who presents to [facility] emergency Department with altered mental status. She is very somnolent but which she did tell the ER physician is that she drank a lot of antifreeze and took a lot of Valium. Per EMS report she also may have taken some unknown amount of Benadryl. She is protecting her airway, but it is significantly somnolent, difficult to arouse. The rest of her history is unobtainable. I evaluated the patient and agree with the ER physicians findings that she is not able to provide history with me, but she is still protecting her airway. Her laboratory data is pertinent for white blood cell count 10, hemoglobin 15, INR 0.9. Her ABG demonstrates a severe metabolic acidosis with an inappropriate respiratory compensation with a pH of 7.22, PCO2 24, PO2 of 106, base deficit of 17.1. Her UA demonstrates crystals. Her BMP is remarkable for a serum bicarbonate of 12.8, creatinine 1.05, serum osmolality of 342, anion gap of 23, osmole gap of 43. Her ethanol level was negative, Tylenol level levels negative, aspirin levels 2.7. Her UDS is positive for benzos. Critical care medicine has been consulted to evaluate and manage her ethylene glycol overdose. Our hospital does not carry Fomepizole and we cannot obtain it. The ER contacted poison control and they recommended in absence of fomepizole, ethanol infusion and sodium bicarbonate infusion. I have spoken with Dr. Cloud our on-call service administrator. We both agree that her acidosis is great enough and uncompensated, and her airway is tenuous although still protected at this moment , that the safest option weighing risks/benefits is to proceed with emergent dialysis. Dr. Medellin, the ER physician, agrees with our assessment. CBC/BMP: 09/09/16 0443 09/09/16442 Significant Findings Laboratory Tests Test 09/07/16 09/07/16 09/07/16 09/07/16 11:50 12:00 12:01 16:40 Urine Calcium Oxalate Crystals FEW /hpf (NONE) Serum Osmolality 342 MOSM/KG (275-295) Urine Benzodiazepines Screen POS (NEG) Chloride Level 109 MEQ/L (98-107) Carbon Dioxide Level 12.8 MEQ/L (21.0-32.0) Anion Gap 23 MEQ/L (5-15) Creatinine 1.05 MG/DL (0.50-1.00) Estimat Glomerular Filtration 56 ML/MIN (>89) Rate Random Glucose 63 MG/DL (74-106) Alkaline Phosphatase 126 U/L (45-117) Total Protein 8.8 GM/DL (6.4-8.2) Salicylates Level 2.7 MG/DL (2.8-20.0) Acetaminophen Level LESS THAN 2.0 MCG/ML (10.0-30.0) Blood Gas HCO3 9 mmol/L 16 mmol/L (22-26) (22-26) Blood Gas Base Excess -17.1 mmol/L -8.2 mmol/L (-2-2) (-2-2) Arterial Blood pH 7.22 (7.380-7.420) Arterial Blood Partial 24 mmHg (38-42) 26 mmHg (38-42) Pressure CO2 Arterial Blood Oxygen Content 20.2 Vol % (12.0-20.0) Arterial Blood Methemoglobin 2.1 % (0-2) 2.2 % (0-2) Arterial Blood Partial 147 mmHG Pressure O2 (61-120) Test 09/08/16 09/09/16 06:58 04:43 White Blood Count 12.3 TH/MM3 (4.0-11.0) Potassium Level 3.0 MEQ/L (3.5-5.1) Estimat Glomerular Filtration 60 ML/MIN (>89) 67 ML/MIN (>89) Rate Random Glucose 71 MG/DL (74-106) Serum Osmolality 299 MOSM/KG (275-295) Calcium Level 8.3 MG/DL 8.4 MG/DL (8.5-10.1) (8.5-10.1) Red Blood Count 3.60 MIL/MM3 (4.00-5.30) Hemoglobin 11.1 GM/DL (11.6-15.3) Hematocrit 33.1 % (35.0-46.0) Chloride Level 108 MEQ/L (98-107) Imaging Last Impressions Chest X-Ray 09/07/16 1152 Signed Impressions: Service Date/Time: Wednesday, September 07, 2016 12:03 - CONCLUSION: No acute cardiopulmonary abnormality is identified. Zaire La MD PE at Discharge GENERAL: Alert, Oriented x 3. SKIN: Warm and dry. HEAD: Normocephalic. EYES: No scleral icterus. No injection or drainage. NECK: Supple, trachea midline. No JVD or lymphadenopathy. CARDIOVASCULAR: Regular rate and rhythm without murmurs, gallops, or rubs. RESPIRATORY: Breath sounds equal bilaterally. No accessory muscle use. GASTROINTESTINAL: Abdomen soft, non-tender, nondistended. MUSCULOSKELETAL: No cyanosis, or edema. BACK: Nontender without obvious deformity. No CVA tenderness. Pt update on day of discharge Ms. Patrick is doing well. No acute concerns. Denies any CP, SOB, fever, chills. Tolerating diet well. Hospital Course This is a 46-year-old female with ethylene glycol and valium toxicity, now s/p IHD x 2 emergently for life-threatening acidosis and altered mental status. now clinically improved. 1. ethylene glycol toxicity Metabolic acidosis. -- completed hemodialysis on 09/08/2016. -- no need for further dialysis. Dialysis cath discontinued. -- appreciate poison control following along 2. valium overdose -- clinically improved -- monitor for signs of benzo withdraw 3. Acute kidney injury -- resolving. -- Webber discontinued. 4. Suicidal ideation/attempt -- psych consult -- will likely need inpatient psych referral. Patient can be discharged to regular psychiatry floor. No need for med-psych floor. -- regular basic diet as tolerated -- Ambulation for DVT prophylaxis. -- no indication for GI prophy at this time. Electrolytes, metabolic acidosis resolved. BP is reasonable but slightly on the lower side. Expect this to improve. We will discharge patient to psychiatry floor. Pt Condition on Discharge: Good Discharge Disposition: Disc to Psych Care Fac Discharge Time: <= 30 minutes Discharge Instructions DIET: Follow Instructions for: As Tolerated, No Restrictions Activities you can perform: Regular-No Restrictions Betzaida Esposito DO Sep 09, 2016 9:15 am
[2016-09-09] MEDS: DOCUSATE SODIUM 50 MG/SENNA 8.6 MG TAB PO SCH (09:46)
[2016-09-09] MEDS: SODIUM CHLORIDE 0.9% FLUSH 5 ML FLUSH IV FLUSH SCH (09:46)
== END 2016-09-09 10:55 | DRG 918 ==
LOC: NEPC 11:26 → NEDA 13:39 → HIME 21:25
PROVIDERS: ADMIT Hospitalist; ATTEND Hospitalist
PROC: 05HM33Z Insertion of Infusion Device into Right Internal Jugular Vein, Percutaneous Approach (ICD-10-PCS; principal; 2016-09-07)
PROC: 5A1D60Z (ICD-10-PCS; 2016-09-07)
DX: T51.8X2A Toxic effect of other alcohols, intentional self-harm, initial encounter (principal); N17.9 Acute kidney failure, unspecified; E87.2 Acidosis; F33.3 Major depressive disorder, recurrent, severe with psychotic symptoms; R45.851 Suicidal ideations; T42.4X2A Poisoning by benzodiazepines, intentional self-harm, initial encounter; Y92.9 Unspecified place or not applicable; J45.909 Unspecified asthma, uncomplicated; Z91.5 Personal history of self-harm
CPT/HCPCS: 36600; 51702; 71010; 80048; 80053; 80307; 80320; 80329; 81001; 82805; 82948; 83605; 83930; 83935; 84702; 85025; 85027; 85610; 85730; 87641; 90935; 93005; 94150; 94640; 94667; 94668; 96374; G0480; J1580; J1644; J2405; J3480; J7030

== ENCOUNTER 2016-09-09 11:30 | Inpatient (IN) | payer BC ==
[~2016-09-09] VITALS: Ht 154.9 cm; Wt 54.8 kg
[2016-09-09 12:19] VITALS: BP 105/63; PULSE 83; RESP 18; TEMP 98.7; O2SAT 97
[2016-09-09] MEDS ORDERED: ALUMINUM/MAGNESIUM/SIMETH 30 ML CUP PO PRN (12:45)
[2016-09-09] MEDS ORDERED: diphenhydrAMINE HCL 50 MG CAP PO PRN (12:45)
[2016-09-09] MEDS ORDERED: MAGNESIUM HYDROXIDE SUSP 30 ML CUP PO PRN (12:45)
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
[2016-09-09 18:30] VITALS: BP_SYST 107; BP_SYST 108; BP_DIAS 66; BP_DIAS 71; PULSE 74; PULSE 82; RESP 16; RESP 18; TEMP 97.8; O2SAT 100; O2SAT 98
[2016-09-09] MEDS: REMOVE OLD NICODERM (NICOTINE) PATCH TD SCH (21:00)
[2016-09-09] MEDS: ARIPiprazole 10 MG TAB PO SCH (21:15)
[2016-09-09] MEDS: hydrOXYzine HCL 50 MG TAB PO PRN (22:14)
[2016-09-10 06:06] VITALS: BP 125/65; PULSE 83; RESP 18; TEMP 98.9; O2SAT 98
[2016-09-10] MEDS: NICOTINE 21 MG/24 HR PATCH T-DERMAL SCH (09:00)
--- NOTE | 2016-09-10 11:47 | HHI.PYPN ---
Subjective Remarks Patient was seen and discussed with the staff internist office based only. Patient was somewhat upset. She claimed that she was not treated fairly by the staff and she could be reassured. She was encouraged to participate in all the therapeutic activity on the floor. She needs to abstain from any alcohol use and/or abuse and follow -up as an outpatient. She was complaining of feeling sleepy probably secondary to the medication but was willing to continue to take it. Denies any auditory or visual hallucinations or suicidal ideation or plan. Continue with the same treatment Review of Systems Except as stated in HPI: all other systems reviewed are Neg Psychiatric: COMPLAINS OF: Mood changes, Depression Objective Alert: Yes [place]: Person, Place, Situation Mood: Depressed Affect: Restricted Memory Intact: Recent (mildly impaired), Comment Hallucinations: Other (denied any auditory or visual hallucinations) Delusions: No Delusion Type: Other (patient was somewhat unhappy and guarded) Suicidal: Ideation (denies any suicidal ideation intentions of plan) Homicidal: Ideation (denies) Insight/Judgement Fair Remarks Attention and concentration improving gait normal. Fund of knowledge average language normal Vitals/IOs Vital Signs Date Time Temp Pulse Resp B/P Pulse Ox O2 Delivery O2 Flow Rate FiO2 09/10/16 06:06 98.9 83 18 125/65 98 Assessment & Plan Problem List: (1) Major depressive disorder ICD Code: F32.9 Assessment & Plan Estimated LOS: days Justification for Cont. Inpt. Monitoring of the medication Request HC Surrog/Guard Advoc?: No Problem Qualifiers (1) Major depressive disorder: Carlos El MD Sep 10, 2016 11:47
[2016-09-10] MEDS: ACETAMINOPHEN 325 MG TAB PO PRN (18:09)
[2016-09-10 18:49] VITALS: BP 128/62; PULSE 84; RESP 18; TEMP 98.6; O2SAT 100
[2016-09-10] MEDS: REMOVE OLD NICODERM (NICOTINE) PATCH TD SCH (21:00)
[2016-09-10] MEDS: ARIPiprazole 10 MG TAB PO SCH (21:00)
[2016-09-11 05:00] VITALS: BP 105/75; PULSE 79; RESP 18; TEMP 87.8; TEMP 97.8; O2SAT 95
[2016-09-11] MEDS: NICOTINE 21 MG/24 HR PATCH T-DERMAL SCH (09:00)
--- NOTE | 2016-09-11 10:37 | HHI.PYPN ---
Subjective Remarks Patient was seen and discussed with the entry level staff accountant. Patient claimed that she has been feeling little bit better more cooperative she slept okay still feels somewhat depressed but willing to stay with her family and follow-up as an outpatient. Patient denies any suicidal ideation intentions or plan willing to follow-up as an outpatient. No side effects were complained. No behavior or management problem reported. Continue with the same treatment Review of Systems Except as stated in HPI: all other systems reviewed are Neg Psychiatric: COMPLAINS OF: Mood changes, Depression Objective Alert: Yes [place]: Person, Place, Date, Situation Mood: Depressed Affect: Restricted Memory Intact: Recent (mildly impaired), Comment Hallucinations: Other (denied any auditory or visual hallucinations) Delusions: No Delusion Type: Other (patient was somewhat unhappy and guarded) Suicidal: Ideation (denies any suicidal ideation intentions of plan) Homicidal: Ideation (denies) Insight/Judgement Fair Vitals/IOs Vital Signs Date Time Temp Pulse Resp B/P Pulse Ox O2 Delivery O2 Flow Rate FiO2 09/11/16 05:00 87.8 79 18 105/75 95 Assessment & Plan Problem List: (1) Major depressive disorder ICD Code: F32.9 Assessment & Plan Estimated LOS: days Justification for Cont. Inpt. Monitoring of the medication and risk of safety Request HC Surrog/Guard Advoc?: No Problem Qualifiers (1) Major depressive disorder: Carlos El MD Sep 11, 2016 10:37
[2016-09-11] MEDS: ACETAMINOPHEN 325 MG TAB PO PRN (14:02)
--- NOTE | 2016-09-11 16:49 | PD.CONS ---
HPI Service [facility] Hospitalists Consult Requested By Psychiatric services Reason for Consult Wound care Primary Care Physician No Primary Care Physician Diagnoses: History of Present Illness This is a 46-year-old female with no other past medical history who presented to [facility] emergency Department on 09/07/2016 with altered mental status. Patient had drank antifreeze and took Valium. Per EMS report she also may have taken some unknown amount of Benadryl as well. Patient was initially in metabolic acidosis was given urgent dialysis treatments and treated by the digital media specialist in the intensive care unit. Patient was stabilized and discharged to inpatient psychiatric center. Patient is now inpatient psychiatric center we have been consulted for assistance with wound management. Patient has healing puncture wound right side of neck from hemodialysis catheter. Patient also has bilateral forearm ecchymosis with mild ecchymosis secondary to blood draws and IV sites. There is no evidence of infection erythema drainage or warmth. Patient offers no other medical complaints at this time. Patient denies shortness of breath chest pain nausea vomiting diarrhea constipation fevers or chills. Review of Systems Other All other systems reviewed and negative except as mentioned in history of present illness Past Family Social History Allergies: Coded Allergies: PEANUTS (Verified Allergy, Severe, 09/08/16) Sesame Seed (Verified Allergy, Severe, 09/08/16) Soy Flour (Verified Allergy, Severe, 09/08/16) Soy Milk (Verified Allergy, Severe, 09/08/16) Soy Protein (Verified Allergy, Severe, 09/08/16) Morphine (Verified Allergy, Unknown, 09/07/16) Past Medical History Denies prior medical history specifically diabetes hypertension hyperlipidemia Past Surgical History lumpectomy breast augmentation and hysterectomy Reported Medications Reports she does not take any home medications on a regular basis Active Ordered Medications Current Medications Medications (Trade) Dose Ordered Sig/Clovis Route Start Time Stop Time Status Last Admin (Benadryl) 50 mg HS PRN PO 09/09/16 12:45 (Tylenol) 650 mg Q4H PRN PO 09/09/16 12:45 09/11/16 14:02 (Milk Of Magnesia Liq) 30 ml DAILY PRN PO 09/09/16 12:45 (Mag-Al Plus Susp Liq) 30 ml Q6H PRN PO 09/09/16 12:45 (Habitrol 21 Mg Patch.24 Hr) 1 patch DAILY T-DERMAL 09/10/16 09:00 (Atarax) 50 mg Q6H PRN PO 09/09/16 12:45 09/09/16 22:14 Miscellaneous Information 1 HS TD 09/09/16 21:00 09/10/16 21:00 (Abilify) 10 mg HS PO 09/09/16 21:00 09/10/16 21:00 Family History Depression Social History Drinks wine daily Does use tobacco daily Physical Exam Vital Signs Vital Signs Date Time Temp Pulse Resp B/P Pulse Ox O2 Delivery O2 Flow Rate FiO2 09/11/16 05:00 87.8 79 18 105/75 95 09/11/16 05:00 97.8 79 18 105/75 95 09/10/16 18:49 98.6 84 18 128/62 100 Physical Exam GENERAL: This is a well-nourished, well-developed patient, in no apparent distress. SKIN: healing puncture wound right side of neck from hemodialysis catheter. Patient also has bilateral forearm edema with mild ecchymosis. There is no evidence of infection erythema drainage or warmth. HEAD: Atraumatic. Normocephalic. No temporal or scalp tenderness. EYES: Pupils equal round and reactive. Extraocular motions intact. No scleral icterus. No injection or drainage. ENT: Nose without bleeding, purulent drainage or septal hematoma. Throat without erythema, tonsillar hypertrophy or exudate. Uvula midline. Airway patent. NECK: Trachea midline. No JVD or lymphadenopathy. Supple, nontender, no meningeal signs. CARDIOVASCULAR: Regular rate and rhythm without murmurs, gallops, or rubs. RESPIRATORY: Clear to auscultation. Breath sounds equal bilaterally. No wheezes , rales, or rhonchi. GASTROINTESTINAL: Abdomen soft, non-tender, nondistended. No hepato-splenomegaly , or palpable masses. No guarding. MUSCULOSKELETAL: Extremities without clubbing, cyanosis, or edema. No joint tenderness, effusion, or edema noted. No calf tenderness. Negative Homans sign bilaterally. NEUROLOGICAL: Awake and alert. Cranial nerves II through XII intact. Motor and sensory grossly within normal limits. Five out of 5 muscle strength in all muscle groups. Normal speech. Assessment and Plan Assessment and Plan This is a 46-year-old female with no other past medical history who presented to [facility] emergency Department on 09/07/2016 with altered mental status. Patient had drank antifreeze and took Valium. Per EMS report she also may have taken some unknown amount of Benadryl as well. Patient was initially in metabolic acidosis was given urgent dialysis treatments and treated by the digital media specialist in the intensive care unit. Patient was stabilized and discharged to inpatient psychiatric center. Patient is now inpatient psychiatric center we have been consulted for assistance with wound management. Patient has healing puncture wound right side of neck from hemodialysis catheter. Patient also has bilateral forearm ecchymosis with mild ecchymosis secondary to blood draws and IV sites. There is no evidence of infection erythema drainage or warmth. Healing puncture wound to right side of neck- keep area clean and dry apply bandaid Mild bilateral forearm thrombophlebitis Warm compress as needed for comfort Suicide attempt management per psychiatric team DVT prophylaxis patient is ambulatory Discussed with patient and RN Patient appears medically stable we will sign off if further assistance is needed or patient's condition changes please reconsult. Written by Kylah Caceres, acting as scribe for Dr. Esposito on 09/11/16 at 15 :49. The documentation accurately reflects the work performed [id number] by me on at 15:49. Kylah Caceres Sep 11, 2016 16:49 Betzaida Esposito DO Sep 11, 2016 18:36
[2016-09-11 18:00] VITALS: BP 125/68; PULSE 76; RESP 18; TEMP 97.2; O2SAT 96
[2016-09-11] MEDS: REMOVE OLD NICODERM (NICOTINE) PATCH TD SCH (21:00)
[2016-09-11] MEDS: ARIPiprazole 10 MG TAB PO SCH (21:02)
[2016-09-11] MEDS: hydrOXYzine HCL 50 MG TAB PO PRN (22:18)
[2016-09-12 05:17] VITALS: BP 114/61; PULSE 86; RESP 16; TEMP 97.6; O2SAT 96
[2016-09-12] MEDS: NICOTINE 21 MG/24 HR PATCH T-DERMAL SCH (09:00)
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
[2016-09-12] MEDS ORDERED: ARIP1TAB12 PO (10:43)
== END 2016-09-12 14:45 | disposition home or self-care (01) | DRG 885 ==
LOC: H260 11:30
PROVIDERS: ADMIT Psychiatry & Neurology Psychiatry; ATTEND Psychiatry & Neurology Psychiatry
DX: F33.1 Major depressive disorder, recurrent, moderate (principal); E87.2 Acidosis; Z72.89 Other problems related to lifestyle; I80.8 Phlebitis and thrombophlebitis of other sites; Z72.0 Tobacco use